=== PATIENT | female | born 1990 | race Caucasian/White ===

== ENCOUNTER 2019-09-04 20:53 | Emergency (ER) | payer OTHER ==
[~2019-09-04] VITALS: Ht 162.6 cm; Wt 75.3 kg
[~2019-09-04 20:53] MED LIST: IRON1 TA1 PO; PRENATAL TABLE1 EAC1 PO
[2019-09-04] MEDS ORDERED: XOFLUZA40 MG PO (22:32)
[2019-09-04] MEDS ORDERED: TUSNEL LIQUID178 ML PO (22:32)
[2019-09-04] MEDS ORDERED: DOLOGEN CAPLET1 EACH PO (22:32)
[2019-09-04] MEDS ORDERED: OSEL75CA PO (22:33)
== END 2019-09-04 22:52 | disposition home or self-care (01) ==
LOC: ER 20:53
DX: J11.1 Influenza due to unidentified influenza virus with other respiratory manifestations (principal)

== ENCOUNTER 2021-02-23 07:11 | Day surgery (SDC) | payer OTHER ==
[~2021-02-23 07:11] MED LIST changes: +DOLOGEN CAPLET1 EACH PO; +OSEL75CA PO; +TUSNEL LIQUID178 ML PO; +XOFLUZA40 MG PO
== END 2021-02-23 17:10 | disposition home or self-care (01) ==
LOC: CIR.AMB 07:11
PROVIDERS: ATTEND Colon & Rectal Surgery
DX: K60.1 Chronic anal fissure (principal); Z20.822 Contact with and (suspected) exposure to COVID-19

== ENCOUNTER 2023-07-17 16:52 | Emergency (ER) | payer OTHER ==
[~2023-07-17] VITALS: Ht 160 cm; Wt 65.8 kg
[2023-07-17 18:56] LABS: HEMATOCRIT 35.4 % (36.0-45.00); HEMOGLOBIN 11.6 g/dL (12.0-15.00); MEAN CELL VOLUME 79.3 fL (80.00-100.00); MEAN CORPUSCULAR HEMOGLOBIN 25.9 pg (27.00-32.0); MEAN CORPUSCULAR HGB CONC 32.7 g/dl (32.0-36.0); PLATELET COUNT 296 K/uL (150-450); RED BLOOD COUNT 4.47 M/uL (4.00-6.00); RED CELL DISTRIBUTION WIDTH 15.9 % (11.5-14.5)
[2023-07-17 19:08] LABS: CALCIUM 9.4 mg/dL (8.5-10.1); CREATININE SERUM 0.69 mg/dL (0.55-1.02); GFR 96.82; POTASSIUM 3.8 mEq/L (3.5-5.1)
== END 2023-07-17 19:37 | disposition home or self-care (01) ==
LOC: ER 16:52
PROVIDERS: General Practice
DX: R21 Rash and other nonspecific skin eruption (principal); M54.9 Dorsalgia, unspecified